=== PATIENT | female | born 1960 | race Caucasian/White ===

== ENCOUNTER 2021-12-10 10:02 | Outpatient (CLI) | payer OTHER, SELFPAY ==
--- NOTE | 2021-12-10 09:45 | CRLHL7_ITS ---
For Patients: As a result of the Cures Act, medical imaging exams and procedure reports are released immediately into your electronic medical record. You may view this report before your referring provider. If you have questions, please contact your health care provider. DIGITAL DIAGNOSTIC RIGHT MAMMOGRAM WITH IMPLANT-DISPLACED VIEWS USING TOMOSYNTHESIS AND COMPUTER-AIDED DETECTION RIGHT BREAST ULTRASOUND CLINICAL HISTORY: RIGHT breast pain. COMPARISON: 07/24/2021, 04/13/2019, 05/07/2017, 12/22/2015, 07/13/2014. TECHNIQUE: Digital RIGHT mammogram in four projections with implant-displaced views. Tomosynthesis and CAD utilized. Real-time ultrasound imaging of RIGHT breast with imaging documentation. BREAST COMPOSITION: There are areas of scattered fibroglandular density. FINDINGS: 3D CC and 3D MLO implant-displaced mammograms RIGHT breast submitted along with 2D nondisplaced implant mammogram films in the CC and MLO projections. Normal fibroglandular tissue without solid mass or architectural distortion. No adenopathy or suspicious calcifications. Implant is intact. Targeted RIGHT breast ultrasound performed in the area of pain. The periareolar breast tissue is normal without fibrocystic change or mass. IMPRESSION: Normal RIGHT breast mammograms and targeted RIGHT breast ultrasound. No evidence of malignancy. Intact implant. RECOMMENDATIONS: Routine screening mammography. Results and recommendations discussed with the patient. BI-RADS Category 2: Benign A lay language report of this examination will be provided to the patient. Dictated by Eugenio Saldivar MD @ 12/10/2021 10:58:01 AM [email or web address]/Dictated by: Eugenio Saldivar MD @ 12/10/2021 10:58:00 AM (Electronically Signed)
--- OUTSIDE RECORDS SUMMARY | 2021-12-10 10:04 | XMS_ITS | Clinical Summary ---
:1960 Author Organization [facility] Address [place] [address] Care Team Providers Name Role Phone Laura Zhou MD Primary Care Provider [phone] Allergies Active Allergy Reactions Severity Noted Date Comments Tetracycline Paresthesias 07/23/2012 Medications Medication Sig Dispensed Refills Start Date End Date Status aspirin (ECOTRIN) 81 Take one tablet 0 07/13/2014 Active mg enteric coated on Tuesdays and tablet fridays. escitalopram oxalate Take 1 Tablet (10 90 tablet. 3 01/22/2021 Active (LEXAPRO) 10 mg mg) by mouth once tabletIndications: daily. Panic attacks Active Problems Problem Noted Date Varicose veins Panic attacks Encounters Date Type Specialty Care Team Description 09/23/2021 Office Visit Laverne Odonnell, [place] Throat Problem 09/23/2021 Travel from Last 3 Months Immunizations Name Administration Dates Next Due Td, Preservative Free (age >= 7 Years) 05/02/2017 Tdap 06/10/2006 Family History Medical History Relation Name Comments Heart Disease Father Good Health Mother Diabetes Sister 2 Cancer-breast No Family History Relation Name Status Comments Father (Age 59) sudden cardiac Mother Alive Sister 1 Alive Sister 2 Social History Tobacco Use Types Packs/Day Years Used Date Never Smoker Smokeless Tobacco: Never Used Tobacco Cessation: Counseling Given: Yes Alcohol Use Standard Drinks/Week Comments Yes 0 (1 standard drink = 0.6 oz pure alcoho l) rare Alcohol Habits Answer Date Recorded How often do you have a drink containing alcohol? Not asked How many drinks containing alcohol do you have on a typical Not asked day when you are drinking? How often do you have six or more drinks on one occasion? No t asked Comment: rare 07/24/2012 Sex Assigned at Date Recorded Not on file Obstetrics History Last Filed Vital Signs Vital Sign Reading Time Taken Comments Blood Pressure 122/88 09/23/2021 2:34 PM CDT Pulse 77 09/23/2021 2:34 PM CDT Temperature 36.3 ??C (97.3 ??F) 09/23/2021 2:34 PM CDT Respiratory Rate 14 09/23/2021 2:34 PM CDT Oxygen Saturation 95% 09/23/2021 2:34 PM CDT Inhaled Oxygen Concentration - - Weight 84.5 kg (186 lb 4.8 oz) 09/23/2021 2:34 PM CDT Height 167.6 cm (5' 6) 05/09/2021 8:53 AM TUBE BALANCER Body Mass Index 30.07 05/09/2021 8:53 AM TUBE BALANCER Plan of Treatment Health Maintenance Due Date Last Done Comments COVID-19 vaccine series (#1) 1960 Zoster (shingles) series for age 1203/15/2011 50+ (1 of 2) Mammogram for age 45-75 04/13/2020 04/13/2019, 05/07/2017, 12/22/2015, Additional history exists Pap test for age 21-65 05/02/2020 05/02/2017, 07/13/2014, 04/26/2011 (Completed outside of [facility]), Additional history exists Influenza for age 50-64 11/15/2021 BMI (ht and wt on same day) for 05/09/2022 05/09/2021, 02/14, age 18+ 05/02/2017, Additional history exists Depression screening for age 12+ 05/09/2022 05/09/2021, , 05/26/2020, Additional history exists Colonoscopy through age 75 11/30/2022 11/30/2012, 3, 11/30/2012 Lipids for age 45-75 02/24/2024 02/23/2019, 05/02/2017, 07/13/2014, Additional history exists Tetanus booster 05/02/2027 05/02/2017, 06/10/2006 Tdap Completed 06/10/2006 Hepatitis C screening for age Completed 05/02/2017 18-79 Procedures Procedure Name Priority Date/Time Associated Diagnosis Comme nts THROAT RAPID STREP STAT 09/23/2021 2:36 PM Sore throat Res ults for this ONLY CLINIC CDT procedure are i n the results section. from Last 3 Months Results THROAT RAPID STREP ONLY CLINIC (09/23/2021 2:36 PM CDT) Analysis Performed At Patho logist Time Signature THROAT RAPID Negative 09/23/[address] [place] [address] A 2:59 PM CDT [facility] Specimen Anatomical Collection Method Collection Time Receive d Time (Source) Location / / Volume Laterality Throat SPECIMEN FROM Non-Blood / 09/23/2021 2:36 PM 09/24/19 22 2:47 THROAT / Unknown Unknown CDT PM CDT Laverne Odonnell NP MICROBIOLOGY Performing Organization Address City/[facility]/ZIP Code Phon e Number [facility] [address] [place] [address] from Last 3 Months Insurance Payer Benefit Plan / Subscriber ID Effective Dates Phone Addre ss Type Group [employer] HP [id number] 2013-Present [address] [place] [address] MEDICA MEDICA IFB [id number] 2021-Present [address] [place] [address] Saima Corrales Personal/Family Self 1960 [address] [place] (Home) [facility] [place] [phone] Norm HAIDER (Work) [id number] 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
--- OUTSIDE RECORDS SUMMARY | 2021-12-10 10:04 | XMS_ITS ---
:1960 Author Care Team Providers Name Role Phone Wade Lynn Primary Care Provider Unavailable Allergies Code Code System Name Reaction Severity Status Onset NKDA ? Medications No Medications Reported Problems No Known Problems Procedures None recorded. Results Lab Results Date Name Specimen Result Interpretation Description Value Range Status Address ? 02/24/2020 SARS CoV 2 RNA ? No observation ? ? ? [facility] (COVID-19), QL, recorded. Urgent Care assembly person-PCR, [place] : Respiratory [address] [facility], [place] 02/15/2020 SARS CoV 2 RNA Nose ? Result negative ? ? [facility] (COVID-19), QL, (nasal U rgent Care assembly person-PCR, passage) [place]: Respiratory [address], [place] Past Encounters None recorded. Social History None recorded. Vaccine List None recorded. Plan of Care Reminders Provider Appointments None recorded. ? ? Lab None recorded. ? ? Referral None recorded. ? ? Procedures None recorded. ? ? Surgeries None recorded. ? ? Imaging None recorded. ? ? Vitals Height Weight BMI 5 ft 6 in 160 lbs 25.8 kg/m2
--- NOTE | 2021-12-10 10:15 | CRLHL7_ITS ---
For Patients: As a result of the Cures Act, medical imaging exams and procedure reports are released immediately into your electronic medical record. You may view this report before your referring provider. If you have questions, please contact your health care provider. PLEASE SEE DIGITAL DIAGNOSTIC RIGHT MAMMOGRAM PERFORMED SAME DAY CRL:[email or web address]/Dictated by: Eugenio Saldivar MD @ 12/10/2021 10:58:00 AM (Electronically Signed)
== END 2021-12-10 10:03 | disposition home or self-care (01) ==
LOC: MAMMO 10:02
PROVIDERS: PCP Internal Medicine; Visit Provider Family Medicine
DX: N64.4 Mastodynia (principal)
CPT/HCPCS: 76642; 77065; 77067; G0279

== ENCOUNTER 2021-12-20 15:54 | Outpatient (CLI) | payer OTHER, SELFPAY ==
--- OUTSIDE RECORDS SUMMARY | 2021-12-20 07:56 | XMS_ITS ---
[...] ? [facility] (COVID-19), QL, recorded. Urgent Care accounting associate-PCR, [place] : Respiratory [address] [facility] [address], [place] 02/15/2020 SARS CoV 2 RNA Nose ? Result negative ? ? [facility] (COVID-19), QL, (nasal U rgent Care accounting associate-PCR, passage) [place]: Respiratory [address], [place] Past Encounters [...]
--- OUTSIDE RECORDS SUMMARY | 2021-12-20 07:56 | XMS_ITS | Clinical Summary ---
:1960 Author Organization [facility] [place] [address] Care Team Providers Name Role Phone Laura Zhou MD Primary Care Provider [phone] Allergies Active Allergy Reactions Severity Noted [...] 167.6 cm (5' 6) 05/09/2021 8:53 AM DENTAL AIDE Body Mass Index 30.07 05/09/2021 8:53 AM DENTAL AIDE Plan of Treatment Health Maintenance Due Date Last Done Comments COVID-19 vaccine series (#1) 1960 Zoster (shingles) series for age 1203/15/2011 50+ (1 of 2) Mammogram for age 45-75 04/13/2020 04/13/2019, 05/07/2017, 12/22/2015, Additional history exists Pap test for age 21-65 05/02/2020 05/02/2017, 07/13/2014, 04/26/2011 (Completed outside of [facility]), Additional history exists Influenza for age [...] logist Time Signature THROAT RAPID Negative 09/23/[address] [place] [address] A 2:59 PM CDT [facility] Specimen Anatomical Collection Method Collection Time Receive d Time (Source) Location / / Volume Laterality Throat SPECIMEN FROM Non-Blood / 09/23/2021 2:36 PM 09/24/19 22 2:47 THROAT / Unknown Unknown CDT PM CDT Laverne Odonnell NP MICROBIOLOGY Performing Organization Address City/[facility]/ZIP Code Phon e Number [facility] [address] [place] [address] from Last 3 Months Insurance Payer Benefit Plan / Subscriber ID Effective Dates Phone Addre ss Type Group [employer] HP [id number] 2013-Present [address] [place] [address] MEDICA MEDICA IFB [id number] 2021-Present [address] [place] [address] Saima Corrales Personal/Family Self 1960 [address] [place] (Home) [facility] [place] [phone] Norm HAIDER (Work) [id number] Care Teams 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
[2021-12-20 12:03] LABS: Cholesterol* 161 mg/dL (90-199); Glucose* 107 mg/dL (60-115); HDL Cholesterol* 49 mg/dL (>=50); LDL Cholesterol Calculated 92 mg/dL (<100); Triglycerides* 101 mg/dL (40-149)
[2021-12-20 13:00] LABS: Vitamin D 25 Hydroxy* 54 ng/mL (30-80)
== END 2021-12-20 15:55 | disposition home or self-care (01) ==
PROVIDERS: PCP Internal Medicine; Visit Provider Internal Medicine
DX: Z01.419 Encounter for gynecological examination (general) (routine) without abnormal findings (principal); M85.80 Other specified disorders of bone density and structure, unspecified site; R73.03 Prediabetes; E66.9 Obesity, unspecified; F41.1 Generalized anxiety disorder
CPT/HCPCS: 80061; 82306; 82947

== ENCOUNTER 2022-01-02 15:17 | Outpatient (CLI) | payer OTHER, SELFPAY ==
--- OUTSIDE RECORDS SUMMARY | 2022-01-02 15:20 | XMS_ITS | Clinical Summary ---
:1960 Author Organization [facility] [place] [address] Care Team Providers Name Role Phone Laura Zhou MD Primary Care Provider Allergies Active Allergy Reactions Severity Noted Date [...] Encounters Date Type Specialty Care Team Description 12/25/2021 Lab Requisition Lili Anne MD 12/25/2021 Lab Requisition Lili Anne MD from Last 3 Months Immunizations Name Administration [...] 167.6 cm (5' 6) 05/09/2021 8:53 AM PYTHON DJANGO DEVELOPER Body Mass Index 30.07 05/09/2021 8:53 AM PYTHON DJANGO DEVELOPER Plan of Treatment Health Maintenance Due Date Last Done Comments COVID-19 vaccine series (#1) 1960 Zoster (shingles) series for age 1203/15/2011 50+ (1 of 2) Mammogram for age 45-75 04/13/2020 04/13/2019, 05/07/2017, 12/22/2015, Additional history exists Influenza for age 50-64 11/15/2021 BMI (ht and wt on same day) for 05/09/2022 05/09/2021, 02/14, age 18+ 05/02/2017, Additional history exists Depression screening for age 12+ 05/09/2022 05/09/2021, , 05/26/2020, Additional history exists Colonoscopy through age 75 11/30/2022 11/30/2012, 3, 11/30/2012 Lipids for age 45-75 02/24/2024 02/23/2019, 05/02/2017, 07/13/2014, Additional history exists Pap test for age 21-65 12/25/2024 12/25/2021, 05/02/2017, 07/13/2014, Additional history exists Tetanus booster 05/02/2027 05/02/2017, 06/10/2006 Tdap Completed 06/10/2006 Hepatitis C screening for age Completed 05/02/2017 18-79 Procedures Procedure Name Priority Date/Time Associated Diagnosis Comme nts LAB TRACKING EVENT Routine 12/25/2021 8:30 AM CDT HPV THIN PREP Routine 12/25/2021 8:30 AM Results for this CDT procedure are i n the results section. from Last 3 Months Results LAB TRACKING EVENT (12/25/2021 8:30 AM CDT) Specimen Anatomical Collection Method Collection Time Receive d Time (Source) Location / / Volume Laterality Other (Other) Client Collect / 12/25/2021 8:30 AM 12/15 8:21 Unknown CDT PM CDT Lili Anne MD LAB BILL ONLY Performing Organization Address City/State/ZIP Code Phon e Number [facility] [phone] [place], [place] [id number] [address] LAB[facility]ATORY-[facility] 2000 LABORATORY HPV HIGH RISK (12/25/2021 8:30 AM CDT) Analysis Performed At Patho logist Time Signature TYPE 16 Negative Negative 12/27/2021 [facility] 2:16 PM CDT [facility] [facility]AL LABORATORY TYPE 18 Negative Negative 12/27/2021 [facility] 2:16 PM CDT [facility] [facility] LABORATORY OTHER HIGH Negative Negative 12/27/2021 [facility] RISK TYPES 2:16 PM CDT [facility] [facility] Specimen Anatomical Collection Method Collection Time Receive d Time (Source) Location / / Volume Laterality Other (Cervical) 12/25/2021 8:30 AM 12/26 8:17 CDT AM CDT Narrative [facility] LABORAT ORY - 12/27/2021 2:16 PM CDT HPV types 16, 18, 31, 33, 35, 39, 45, 51, 52, 56, 58, 59, 66 and 68 DNA were undetectable or below the pre-set threshold. Methodology: Sherif Jessica 4800 HPV Test Lili Anne MD MICROBIOLOGY Performing Organization Address City/State/ZIP [facility] Phon e Number [facility] [phone] 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
--- NOTE | 2022-01-02 15:30 | CRLHL7_ITS ---
For Patients: As a result of the Century Cures Act, medical imaging exams and procedure reports are released immediately into your electronic medical record. You may view this report before your referring provider. If you have questions, please contact your health care provider. DXA BONE MINERAL DENSITY STUDY Current height (in): 65.0. Weight (lb): 175.0. Menopause age: 49. Ethnicity: White. Reason for exam: Osteopenia. 1. Have you had a previous hip or vertebral fracture? No. 2. Have you had any fractures during your adult life which did not result from significant trauma (e.g., auto accident)? No. 3. Did either of your parents have a hip fracture? No. 4. Do you smoke? No. 5. Have you ever taken Glucocorticoids? No. 6. Do you have rheumatoid arthritis? No. 7. Do you have secondary osteoporosis? No. 8. Do you drink 3 or more alcoholic drinks per day? No. 9. Are you being treated for osteoporosis? No. 10. Have you ever taken any of the following medications: Actonel, Evista, Fosamax, Miacalcin, Reclast, Boniva, Forteo, HRT (i.e. estrogen/hormone therapy), Protelos, Prolia, Vitamin D, Calcium, other ??? please specify. ANSWER: Yes, vitamin D, HRT, calcium. 11. Do you have any of the following medical conditions: Anorexia or bulimia, asthma or emphysema, end stage renal disease, hyperparathyroidism, any seizure disorders, cancer, inflammatory bowel diseases, hysterectomy, other ??? please specify. ANSWER: No. 12. What was your maximum height (inches)? 65. 13. Do you perform weight bearing exercise regularly? Yes. 14. Do you regularly consume dairy products? Yes. 15. Do you drink caffeinated beverages? Yes. If female: 16. At what age did your period start? 13. 17. Are you premenopausal? No. 18. How many full term pregnancies have you had? 2. 19. Have you ever missed your period for more than 6 months in a row (not including or menopause)? No. TECHNIQUE: Bone mineral density study was performed using the [employer]. FINDINGS: The results of the study expressed as bone mineral density (BMD) are as follows: Lumbar spine L1 to L4: BMD: 0.869 g/cm2. T-score: -1.6. Z-score: -0.2. Neck Left: BMD: 0.645 g/cm2. T-score: -1.8. Z-score: -0.5. Right: BMD: 0.656 g/cm2. T-score: -1.7. Z-score: -0.4. Total Left: BMD: 0.859 g/cm2. T-score: -0.7. Z-score: 0.3. Right: BMD: 0.791 g/cm2. T-score: -1.2. Z-score: -0.2. IMPRESSION: Osteopenia. FRAX 10-year Fracture Risk Major Osteoporotic Fracture: 8.9 percent Hip Fracture: 1.0 percent Reported Risk Factors: [place] () Neck BMD = 0.645, BMI = 29.1 Eugenio Saldivar M.D. Diagnostic Radiologist [email or web address] Transcribed: 11:30 a.m. DW/Dictated by: Eugenio Saldivar MD @ 01/03/2022 10:12:00 AM (Electronically Signed)
--- NOTE | 2022-01-02 16:00 | CRLHL7_ITS ---
For Patients: As a result of the Century Cures Act, medical imaging exams and procedure reports are released immediately into your electronic medical record. You may view this report before your referring provider. If you have questions, please contact your health care provider. INDICATION: Right supraclavicular neck lump. TECHNIQUE: CT of the neck with 89 cc Isovue 370 iodinated contrast agent. Coronal and sagittal reconstructions are included. COMPARISON: No comparisons. FINDINGS: The radiodense skin marker is only visible on the in store marketing representative image. No mass or pathologic lymphadenopathy within the right supraclavicular/infraclavicular region. There is no mass or lymphadenopathy elsewhere within the suprahyoid or infrahyoid neck. The oral cavity, nasopharyngeal, oropharyngeal and hypopharyngeal spaces are normal. The supraglottic, glottic and infraglottic larynx are normal. The airway including the trachea is normal and is patent. The parotid glands, submandibular and sublingual glands are normal in appearance. There is a tiny hypodensity within the right thyroid lobe. The thyroid gland is otherwise normal in appearance. The vascular structures opacify normally with contrast material. No suspicious lytic or blastic osseous lesions. 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 Low-grade bony neural foraminal stenosis elsewhere. No periapical dental disease. Visualized paranasal sinuses and mastoid air cells are clear. Visualized orbital and intracranial contents are normal. Supraclavicular regions, mediastinum and soft tissues of the imaged chest wall are normal. Visualized portions of the upper lungs are clear. IMPRESSION: 1. No mass or lymphadenopathy within the right supraclavicular region or elsewhere within the soft tissues of the neck. 2. No acute osseous abnormalities. Scattered cervical spondylosis. Please note that all CT scans at this facility use dose modulation, iterative reconstruction, and/or weight-based dosing when appropriate to reduce radiation dose to as low as reasonably achievable. Dictated by Terell Bernal MD @ 01/03/2022 9:11:25 AM (Electronically Signed)
[2022-01-02 16:17] LABS: Creatinine* 0.7 mg/dL (0.5-1.5); Estimated Glomerular Filt Rate 99 ml/min
== END 2022-01-02 15:18 | disposition home or self-care (01) ==
LOC: RAD 15:18
PROVIDERS: PCP Internal Medicine; Visit Provider Internal Medicine
DX: R22.1 Localized swelling, mass and lump, neck (principal); M85.80 Other specified disorders of bone density and structure, unspecified site; M85.89 Other specified disorders of bone density and structure, multiple sites
CPT/HCPCS: 36415; 70491; 77080; 82565; Q9967

== ENCOUNTER 2023-01-24 09:37 | Outpatient (CLI) | payer OTHER, SELFPAY | END 2023-01-24 09:38 | disposition home or self-care (01) | LOC: NFLDREF 01-28 23:04 | PROVIDERS: PCP Internal Medicine; Referring Provider Internal Medicine; Visit Provider Internal Medicine | DX: R73.03 Prediabetes (principal) | CPT/HCPCS: 82947 ==

== ENCOUNTER 2023-03-13 14:51 | Outpatient (CLI) | payer OTHER, SELFPAY ==
--- NOTE | 2023-03-13 15:00 | CRLHL7_ITS ---
For Patients: As a result of the Century Cures Act, medical imaging exams and procedure reports are released immediately into your electronic medical record. You may view this report before your referring provider. If you have questions, please contact your health care provider. BILATERAL SCREENING MAMMOGRAM WITH COMPUTER-AIDED DETECTION AND TOMOSYNTHESIS TECHNIQUE: CC, MLO and Implant displaced views were obtained. These mammographic images have been obtained using full-field digital technique. These mammographic images were interpreted with the benefit of computer-aided detection. Breast Tomosynthesis was used in this interpretation. COMPARISON FILM: 07/24/21, 04/13/19, 05/07/17. FINDINGS: The breasts are almost entirely fatty IMPRESSION: There is no radiographic evidence for malignancy. ASSESSMENT: BI-RADS Category 2: Benign RECOMMENDATION: Routine screening mammogram in 1 year. A lay language report of this examination will be provided to the patient. Eugenio Saldivar M.D. Diagnostic Radiologist [email or web address] REAL/Dictated by: Eugenio Saldivar MD @ 03/14/2023 1:32:00 PM (Electronically Signed)
== END 2023-03-13 14:52 | disposition home or self-care (01) ==
LOC: MAMMO 14:51
PROVIDERS: PCP Internal Medicine; Visit Provider Internal Medicine
DX: Z12.31 Encounter for screening mammogram for malignant neoplasm of breast (principal)
CPT/HCPCS: 77063; 77067

== ENCOUNTER 2025-01-26 08:55 | Outpatient (CLI) | payer OTHER, SELFPAY ==
--- NOTE | 2025-01-26 09:15 | MR_ITS ---
EXAM: MRI EXAMINATION OF THE LEFT KNEE CLINICAL INFORMATION: Left knee pain. No history of surgery to this area. Injury. TECHNICAL INFORMATION: Coronal PD and STIR. Axial PD and T2 fat saturation. Sagittal PD and PD fat saturation images acquired. No prior studies for comparison. INTERPRETATION: Bones: Poorly defined subchondral edema signal involves the patella. No occult fracture or AVN. No other abnormal bone marrow edema pattern is identified. Ligaments and tendons: The medial collateral ligament is intact, without acute sprain or tear. The iliotibial band, fibular collateral ligament, biceps femoris tendon and popliteus tendon all are intact. The anterior cruciate ligament is intact without acute sprain or tear. The posterior cruciate ligament is intact. Extensor Mechanism: The patellar and quadriceps tendons are intact. The medial and lateral retinacula are intact. Knee Joint: There is no knee joint effusion. No discrete popliteal cyst. There is no discrete loose body seen within the joint. Medial Compartment: Series 7 image 17 as well as series 6 images 9 and 10 demonstrate a high-grade appearance of a radial tear involving the body of the medial meniscus. No displaced flap fragment or parameniscal cyst. There is no focal chondral defect. No other significant changes of chondromalacia. Lateral Compartment: There is no evidence for discrete lateral meniscal tear. No displaced flap fragment or parameniscal cyst. There is no focal chondral defect. No other significant changes of chondromalacia. 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 There is a 6 mm segment of grade III chondromalacia inferior to the mid surface of the medial trochlear groove. CONCLUSION: 1. There is a high-grade radial tear identified involving the body of the medial meniscus. 2. No lateral meniscal tear. 3. The cruciate ligaments are intact. No other residua of a ligament injury involving the knee. 4. 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 Additional small segment of grade 3 appearing chondromalacia of the medial trochlear groove. 5. No joint effusion or loose body. KES Electronically signed on 01/26/2025 3:44:00 PM by London Felder M.D.
== END 2025-01-26 08:56 | disposition home or self-care (01) ==
LOC: MRI 08:57
PROVIDERS: PCP Internal Medicine; Visit Provider Physician Assistant
DX: M25.562 Pain in left knee (principal); S83.242A Other tear of medial meniscus, current injury, left knee, initial encounter; M22.42 Chondromalacia patellae, left knee
CPT/HCPCS: 73721